=== PATIENT | female | born 1995 | race Caucasian/White ===

== ENCOUNTER 2017-07-22 20:15 | Inpatient (IN) | payer OTHER ==
[~2017-07-22] VITALS: Ht 167.6 cm; Wt 55.0 kg
[~2017-07-22 20:15] MED LIST: AUGMENTIN875 MG PO; DICLEGIS DR 101 EACH PO; NORCO 5/3251 TABLET PO; PRENATAL TABLE1 EAC3 PO; ZOFRAN ODT4 MG PO
[2017-07-22 20:44] LABS: HEMATOCRIT 35.8 % (36.0-46.0); MCH 30.1 PG (29.0-34.0); MCHC 33.2 G/DL (30.0-36.0); MCV 90.6 FL (83-99); MEAN PLAT.VOLUME 9.2 uM^3 (9.5-12.4); PLATELET COUNT 214 K/uL (156-360); RBC DIS.WIDTH-CV 12.9 % (11.8-14.6); RBC DIS.WIDTH-SD 42.5 % (39-53); RED BLOOD COUNT 3.95 M/uL (3.80-5.20); WHITE BLOOD COUNT 6.9 K/uL (4.1-10.2)
[2017-07-22] MEDS ORDERED: LORAZEPAM0.5 MG PO (20:49)
[2017-07-22] MEDS ORDERED: PROMETHAZINE HC25 M1 PO (20:50)
[2017-07-22] MEDS ORDERED: KRATOM PO (20:51)
[2017-07-22 20:54] LABS: CHLORIDE 108 mEq/L (99-109); POTASSIUM 3.5 mEq/L (3.7-5.4); SODIUM 143 mEq/L (136-147)
[2017-07-22 20:55] LABS: GLUCOSE 79 mg/dL (70-99)
[2017-07-22 20:57] LABS: ANION GAP 14 MEQ/L (2-14)
[2017-07-22 20:59] LABS: D-DIMER ELISA < 150.00 ng/mLDDU (<230); GFR ESTIMATE (CALCULATED) > 59 mL/min/
[2017-07-22 21:00] LABS: UREA NITROGEN (BUN) 12 mg/dL (9-23)
[2017-07-22 21:05] LABS: TROP-I INTERPRETATION NEGATIVE; TROPONIN-I < 0.01 ng/mL (0.0-0.30)
[2017-07-22 21:07] LABS: QUANTITATIVE HCG < 4.0 MIU/ML
[2017-07-22] MEDS ORDERED: MELATONIN2.5 MG PO (21:50)
[2017-07-22] MEDS ORDERED: TYLENOL EXTRA500 MG PO (21:51)
[2017-07-22] MEDS ORDERED: TRAZODONE HCL50 MG PO (21:52)
[2017-07-22 22:25] LABS: ADD MIUA? NO; BILIRUBIN NEGATIVE; BLOOD NEGATIVE; COLOR STRAW ((YELLOW)); GLUCOSE (STRIP) NEGATIVE; KETONES NEGATIVE; LEUKOCYTES NEGATIVE; NITRITE NEGATIVE; PROTEIN (STRIP) NEGATIVE; SPECIFIC GRAVITY 1.006 (1.000-1.030); UROBILINOGEN 0.2 MG/DL (0.2-1.0)
[2017-07-22 22:27] LABS: UCUL ADDED? NO
[2017-07-22 22:34] LABS: AMPHETAMINE NEGATIVE (500 ng/mL); BARBITURATES NEGATIVE (200 ng/mL); BENZODIAZEPINES NEGATIVE (150 ng/mL); COCAINE NEGATIVE (150 ng/mL); INTERNAL CONTROLS VALID? YES; METHADONE NEGATIVE (200 ng/mL); METHAMPHETAMINE NEGATIVE (500 ng/mL); OPIATES (MORPHINE) NEGATIVE (100 ng/mL); OXYCODONE NEGATIVE (100 ng/mL); PHENCYCLIDINE NEGATIVE (25 ng/mL); PROPOXYPHENE NEGATIVE (300 ng/mL); THC CANNABINOIDS NEGATIVE (50 ng/mL); TRICYCLIC ANTIDEPRESSANTS NEGATIVE (300 ng/mL)
[2017-07-23] VITALS (8 sets, daily range): BP systolic 92–111; BP diastolic 43–66
[2017-07-23 05:51] LABS: HEMATOCRIT 31.7 % (36.0-46.0); MCH 30.2 PG (29.0-34.0); MCHC 32.5 G/DL (30.0-36.0); MEAN PLAT.VOLUME 10.4 uM^3 (9.5-12.4); PLATELET COUNT 205 K/uL (156-360); RBC DIS.WIDTH-CV 13.2 % (11.8-14.6); RBC DIS.WIDTH-SD 44.6 % (39-53); RED BLOOD COUNT 3.41 M/uL (3.80-5.20); WHITE BLOOD COUNT 12.1 K/uL (4.1-10.2)
[2017-07-23 06:11] LABS: ALKALINE PHOSPHATASE 49 IU/L (3-129); ANION GAP 8 MEQ/L (2-14); CHLORIDE 111 MEQ/L (99-109); GFR ESTIMATE (CALCULATED) > 59 mL/min/; GLUCOSE 92 mg/dL (70-99); POTASSIUM 4.1 MEQ/L (3.7-5.4); SAMPLE HEMOLYSIS CHECK 0; SAMPLE ICTERIC CHECK 0; SAMPLE LIPEMIA CHECK 0; SODIUM 143 MEQ/L (136-147); TOTAL BILIRUBIN 0.3 MG/DL (0.0-1.0); UREA NITROGEN (BUN) 16 mg/dL (9-23)
[2017-07-24 03:00] VITALS: BP 94/55
[2017-07-24 08:53] VITALS: BP 106/68
[2017-07-24 11:45] VITALS: BP 98/54
[2017-07-24] MEDS ORDERED: FAMOTIDINE20 MG PO (12:06)
[2017-07-24] MEDS ORDERED: HEPARIN SO5000 UNIT4 SC (12:06)
[2017-07-24] MEDS ORDERED: CYCLOBENZAPRINE10 MG PO (12:06)
[2017-07-24] MEDS ORDERED: NICOTINE PATCH1 EAC2 TD (12:06)
[2017-07-24] MEDS ORDERED: Tylenol Extra Streng PO (12:06)
== END 2017-07-24 15:24 | disposition short-term general hospital (02) | DRG 309 ==
LOC: EME 20:15 → EDOF 23:11 → ENRESERV 23:12 → 4EAST 07-23 00:05
PROVIDERS: Emergency Medicine; Internal Medicine; Physician Assistant
DX: I49.8 Other specified cardiac arrhythmias (principal); G40.89 Other seizures; R55 Syncope and collapse; F17.210 Nicotine dependence, cigarettes, uncomplicated; E87.6 Hypokalemia; F41.9 Anxiety disorder, unspecified; K50.90 Crohn's disease, unspecified, without complications; D64.9 Anemia, unspecified; I47.2 Ventricular tachycardia; I49.01 Ventricular fibrillation
CPT/HCPCS: 70450; 74176; 80048; 80053; 81003; 83605; 83993 90; 84484; 84702; 85027; 85379; 87086; 93005; 99281; 99285; J1644; J2060; J2270; J7030

== ENCOUNTER 2017-11-06 15:00 | Emergency (ER) | payer OTHER ==
[~2017-11-06] VITALS: Ht 167.6 cm; Wt 55.0 kg
[~2017-11-06 15:00] MED LIST changes: +CYCLOBENZAPRINE10 MG PO; +FAMOTIDINE20 MG PO; +HEPARIN SO5000 UNIT4 SC; +KRATOM PO; +LORAZEPAM0.5 MG PO; +MELATONIN2.5 MG PO; +NICOTINE PATCH1 EAC2 TD; +PROMETHAZINE HC25 M1 PO; +TRAZODONE HCL50 MG PO; +TYLENOL EXTRA500 MG PO; +Tylenol Extra Streng PO
[2017-11-06 15:46] LABS: HEMOGLOBIN 12.5 G/DL (11.9-15.5); MCH 30.1 PG (29.0-34.0); MCHC 32.9 G/DL (30.0-36.0); MCV 91.6 FL (83-99); PLATELET COUNT 196 K/uL (156-360); RBC DIS.WIDTH-CV 12.8 % (11.8-14.6); RBC DIS.WIDTH-SD 42.5 % (39-53); RED BLOOD COUNT 4.15 M/uL (3.80-5.20); WHITE BLOOD COUNT 5.1 K/uL (4.1-10.2)
[2017-11-06 15:56] LABS: CHLORIDE 107 mEq/L (99-109); POTASSIUM 4.4 mEq/L (3.7-5.4); SODIUM 141 mEq/L (136-147)
[2017-11-06 15:58] LABS: GLUCOSE 107 mg/dL (70-99)
[2017-11-06 16:02] LABS: APPEARANCE CLOUDY ((CLEAR)); BILIRUBIN NEGATIVE; BLOOD MODERATE; COLOR YELLOW ((YELLOW)); GLUCOSE (STRIP) NEGATIVE; KETONES NEGATIVE; LEUKOCYTES NEGATIVE; NITRITE NEGATIVE; PROTEIN (STRIP) 30; SPECIFIC GRAVITY 1.035 (1.000-1.030); UROBILINOGEN 0.2 MG/DL (0.2-1.0)
[2017-11-06 16:02] LABS: CREATININE 0.8 mg/dL (0.6-1.3); GFR ESTIMATE (CALCULATED) > 59 mL/min/
[2017-11-06 16:03] LABS: UREA NITROGEN (BUN) 16 mg/dL (9-23)
[2017-11-06 17:10] LABS: EPITHELIAL CELLS 2+ /HPF; RED BLOOD CELLS TNTC /HPF (0-5); WHITE BLOOD CELLS NONE SEEN /HPF (0-5)
[2017-11-06 17:11] LABS: BACTERIA 2+ /HPF; MUCUS RARE /LPF; UCUL ADDED? YES
[2017-11-06] MEDS ORDERED: CIPRO500 MG PO (19:18)
[2017-11-06] MEDS ORDERED: ZOFRAN4 MG PO (19:18)
[2017-11-06] MEDS ORDERED: NORCO 5/3251 TABLET PO (19:18)
[2017-11-06 19:37] VITALS: BP 103/62
== END 2017-11-06 19:38 | disposition home or self-care (01) ==
LOC: EME 15:00
DX: N39.0 Urinary tract infection, site not specified (principal); R31.9 Hematuria, unspecified; R11.2 Nausea with vomiting, unspecified; Z87.442 Personal history of urinary calculi; Z95.0 Presence of cardiac pacemaker; Z88.2 Allergy status to sulfonamides; Z87.891 Personal history of nicotine dependence
CPT/HCPCS: 76775; 80048; 81003; 85027; 87086; 99281; 99285; J1885; J1956; J2405; J3010; J7030

== ENCOUNTER 2017-12-22 15:46 | Emergency (ER) | payer OTHER ==
[~2017-12-22] VITALS: Ht 167.6 cm; Wt 52.7 kg
[~2017-12-22 15:46] MED LIST changes: +CIPRO500 MG PO; +ZOFRAN4 MG PO
[2017-12-22 15:52] VITALS: BP 118/83
[2017-12-22 16:16] LABS: HEMATOCRIT 37.4 % (36.0-46.0); HEMOGLOBIN 12.7 G/DL (11.9-15.5); MCV 88.4 FL (83-99); PLATELET COUNT 219 K/uL (156-360); RBC DIS.WIDTH-SD 41.9 % (39-53); RED BLOOD COUNT 4.23 M/uL (3.80-5.20); WHITE BLOOD COUNT 5.6 K/uL (4.1-10.2)
[2017-12-22 16:25] LABS: ALBUMIN 4.1 g/dL (3.2-4.8); CHLORIDE 106 mEq/L (99-109); POTASSIUM 3.5 mEq/L (3.7-5.4); SODIUM 140 mEq/L (136-147)
[2017-12-22 16:27] LABS: GLUCOSE 104 mg/dL (70-99); TOTAL PROTEIN 6.7 g/dL (6.4-8.3)
[2017-12-22 16:29] LABS: TOTAL BILIRUBIN 0.4 mg/dL (0.0-1.0)
[2017-12-22 16:31] LABS: ALKALINE PHOSPHATASE 67 IU/L (3-129); CREATININE 0.8 mg/dL (0.6-1.3); GFR ESTIMATE (CALCULATED) > 59 mL/min/
[2017-12-22 16:32] LABS: UREA NITROGEN (BUN) 14 mg/dL (9-23)
[2017-12-22 16:32] LABS: APPEARANCE CLOUDY ((CLEAR)); BILIRUBIN SMALL; BLOOD MODERATE; COLOR AMBER ((YELLOW)); GLUCOSE (STRIP) NEGATIVE; KETONES 5; LEUKOCYTES TRACE; NITRITE NEGATIVE; PROTEIN (STRIP) 30; SPECIFIC GRAVITY 1.036 (1.000-1.030); UROBILINOGEN 0.2 MG/DL (0.2-1.0)
[2017-12-22 16:33] LABS: AST (GOT) 23 IU/L (2-34)
[2017-12-22 16:34] LABS: ALT (GPT) 14 IU/L (3-49)
[2017-12-22 16:39] LABS: QUANTITATIVE HCG < 4.0 MIU/ML
[2017-12-22 17:08] LABS: EPITHELIAL CELLS 1+ /HPF; RED BLOOD CELLS 20-30 /HPF (0-5); WHITE BLOOD CELLS RARE /HPF (0-5)
[2017-12-22 17:09] LABS: BACTERIA 1+ /HPF; MUCUS NONE SEEN /LPF; UCUL ADDED? NO
== END 2017-12-22 17:19 | disposition left against medical advice (07) ==
LOC: EME 15:46
DX: R10.9 Unspecified abdominal pain (principal); Z53.21 Procedure and treatment not carried out due to patient leaving prior to being seen by health care provider
CPT/HCPCS: 80053; 81003; 84702; 85027

== ENCOUNTER 2018-04-27 09:29 | Inpatient (IN) | payer OTHER ==
[~2018-04-27] VITALS: Ht 167.6 cm; Wt 55.6 kg
[2018-04-27 10:09] LABS: BASOPHIL (%) 0.3 % (0-1); EOSINOPHIL (%) 0 % (0-5); HEMATOCRIT 33.4 % (36.0-46.0); HEMOGLOBIN 11.2 G/DL (11.9-15.5); IMMATURE GRANULOCYTE (%) 0.3 % (0.0-0.7); LYMPHOCYTE COUNT 1.2 K/uL (1.0-2.8); MCH 29.9 PG (29.0-34.0); MCHC 33.5 G/DL (30.0-36.0); MCV 89.3 FL (83-99); MONOCYTE (%) 6.3 % (3-12); MONOCYTE COUNT 0.5 K/uL (0-0.8); NEUTROPHIL (%) 77.1 % (45-76); PLATELET COUNT 156 K/uL (156-360); RBC DIS.WIDTH-CV 12.6 % (11.8-14.6); RBC DIS.WIDTH-SD 40.9 % (39-53); RED BLOOD COUNT 3.74 M/uL (3.80-5.20); WHITE BLOOD COUNT 7.8 K/uL (4.1-10.2)
[2018-04-27 10:18] LABS: INTER. NORMALIZED RATIO 1.2
[2018-04-27 10:21] LABS: CHLORIDE 108 mEq/L (99-109); POTASSIUM 3.6 mEq/L (3.7-5.4); SODIUM 141 mEq/L (136-147)
[2018-04-27 10:23] LABS: GLUCOSE 101 mg/dL (70-99)
[2018-04-27 10:26] LABS: CREATININE 0.8 mg/dL (0.6-1.3); GFR ESTIMATE (CALCULATED) > 59 mL/min/
[2018-04-27 10:27] LABS: UREA NITROGEN (BUN) 15 mg/dL (9-23)
[2018-04-27 10:31] LABS: TROP-I INTERPRETATION NEGATIVE; TROPONIN-I < 0.01 ng/mL (0.0-0.30)
[2018-04-27] MEDS ORDERED: PANTOPRAZOLE SO40 MG PO (12:59)
[2018-04-27] MEDS ORDERED: PROMETHAZINE12.5 M1 PO (13:00)
[2018-04-27 13:58] VITALS: BP 101/58
[2018-04-27 16:21] LABS: TROP-I INTERPRETATION NEGATIVE; TROPONIN-I < 0.01 ng/mL (0.0-0.30)
[2018-04-27 16:29] VITALS: BP 87/55
[2018-04-27 18:11] VITALS: BP 103/62
[2018-04-27 19:13] VITALS: BP 97/56
[2018-04-27 22:28] LABS: TROP-I INTERPRETATION NEGATIVE; TROPONIN-I < 0.01 ng/mL (0.0-0.30)
[2018-04-27 23:13] VITALS: BP 92/53
[2018-04-28 03:50] VITALS: BP 90/51
[2018-04-28 05:18] VITALS: BP 101/55
[2018-04-28 05:27] LABS: HEMATOCRIT 33.1 % (36.0-46.0); HEMOGLOBIN 10.7 G/DL (11.9-15.5); MCH 29.6 PG (29.0-34.0); MCHC 32.3 G/DL (30.0-36.0); MCV 91.4 FL (83-99); PLATELET COUNT 162 K/uL (156-360); RBC DIS.WIDTH-CV 12.6 % (11.8-14.6); RBC DIS.WIDTH-SD 41.7 % (39-53); RED BLOOD COUNT 3.62 M/uL (3.80-5.20); WHITE BLOOD COUNT 7.5 K/uL (4.1-10.2)
[2018-04-28 05:50] LABS: CHLORIDE 107 MEQ/L (99-109); CREATININE 0.6 MG/DL (0.6-1.3); GFR ESTIMATE (CALCULATED) > 59 mL/min/; GLUCOSE 97 mg/dL (70-99); SODIUM 140 MEQ/L (136-147); UREA NITROGEN (BUN) 12 mg/dL (9-23)
[2018-04-28 07:20] VITALS: BP 95/52
[2018-04-28] MEDS ORDERED: NICOTINE PATCH1 EAC1 TD (09:51)
== END 2018-04-28 12:30 | disposition home or self-care (01) | DRG 101 ==
LOC: EME 09:29 → 4EAST 12:00 → EDOF 12:00 → ENRESERV 12:04 → 4EAST 13:35
PROVIDERS: Emergency Medicine; Family Medicine
DX: G40.409 Other generalized epilepsy and epileptic syndromes, not intractable, without status epilepticus (principal); I49.8 Other specified cardiac arrhythmias; Z95.810 Presence of automatic (implantable) cardiac defibrillator; E87.6 Hypokalemia; R11.2 Nausea with vomiting, unspecified; R63.4 Abnormal weight loss; Z68.1 Body mass index [BMI] 19.9 or less, adult; F17.210 Nicotine dependence, cigarettes, uncomplicated; D64.9 Anemia, unspecified; J40 Bronchitis, not specified as acute or chronic; R07.89 Other chest pain; M54.9 Dorsalgia, unspecified
CPT/HCPCS: 70450; 71045; 80048; 83735; 84484; 85025; 85027; 85610; 85730; 93005; 93306; 95819; 99281; 99285; J1650; J2060; J2405; J3010; J7030

== ENCOUNTER 2018-05-26 20:01 | Emergency (ER) | payer OTHER ==
[~2018-05-26] VITALS: Ht 167.6 cm; Wt 52.9 kg
[~2018-05-26 20:01] MED LIST changes: +NICOTINE PATCH1 EAC1 TD; +PANTOPRAZOLE SO40 MG PO; +PROMETHAZINE12.5 M1 PO
[2018-05-26 20:58] LABS: HEMATOCRIT 30.6 % (36.0-46.0); HEMOGLOBIN 10.5 G/DL (11.9-15.5); MCH 29.8 PG (29.0-34.0); MCHC 34.3 G/DL (30.0-36.0); PLATELET COUNT 147 K/uL (156-360); RBC DIS.WIDTH-CV 13.2 % (11.8-14.6); RBC DIS.WIDTH-SD 41.8 % (39-53); RED BLOOD COUNT 3.52 M/uL (3.80-5.20); WHITE BLOOD COUNT 5.1 K/uL (4.1-10.2)
[2018-05-26 20:59] LABS: MCV 86.9 FL (83-99)
[2018-05-26 21:02] LABS: CHLORIDE 106 mEq/L (99-109); POTASSIUM 3.5 mEq/L (3.7-5.4); SODIUM 141 mEq/L (136-147)
[2018-05-26 21:04] LABS: GLUCOSE 96 mg/dL (70-99); TOTAL PROTEIN 6.4 g/dL (6.4-8.3)
[2018-05-26 21:06] LABS: TOTAL BILIRUBIN 0.5 mg/dL (0.0-1.0)
[2018-05-26 21:07] LABS: SERUM ETHYL ALCOHOL < 10 mg/dL
[2018-05-26 21:08] LABS: ALKALINE PHOSPHATASE 55 IU/L (3-129); CREATININE 0.8 mg/dL (0.6-1.3); GFR ESTIMATE (CALCULATED) > 59 mL/min/
[2018-05-26 21:09] LABS: AST (GOT) 19 IU/L (2-34); UREA NITROGEN (BUN) 14 mg/dL (9-23)
[2018-05-26 21:11] LABS: ALT (GPT) 11 IU/L (3-49)
[2018-05-26 21:12] LABS: QUANTITATIVE HCG < 4.0 MIU/ML
[2018-05-26 22:24] LABS: AMPHETAMINE NEGATIVE (500 ng/mL); BARBITURATES NEGATIVE (200 ng/mL); BENZODIAZEPINES NEGATIVE (150 ng/mL); BUPRENORPHINE NEGATIVE (10 ng/mL); COCAINE NEGATIVE (150 ng/mL); METHADONE NEGATIVE (200 ng/mL); METHAMPHETAMINE NEGATIVE (500 ng/mL); OPIATES (MORPHINE) NEGATIVE (100 ng/mL); OXYCODONE NEGATIVE (100 ng/mL); PHENCYCLIDINE NEGATIVE (25 ng/mL); PROPOXYPHENE NEGATIVE (300 ng/mL); THC CANNABINOIDS NEGATIVE (50 ng/mL); TRICYCLIC ANTIDEPRESSANTS NEGATIVE (300 ng/mL)
[2018-05-26 23:37] VITALS: BP 100/59
== END 2018-05-26 23:38 | disposition home or self-care (01) ==
LOC: EME → EDBD 20:01 → EME 23:38
PROVIDERS: Emergency Medicine
DX: R56.9 Unspecified convulsions (principal); S00.83XA Contusion of other part of head, initial encounter; W18.30XA Fall on same level, unspecified, initial encounter; Y92.000 Kitchen of unspecified non-institutional (private) residence as the place of occurrence of the external cause; F41.9 Anxiety disorder, unspecified; I49.8 Other specified cardiac arrhythmias; K50.90 Crohn's disease, unspecified, without complications; F17.200 Nicotine dependence, unspecified, uncomplicated; Z95.0 Presence of cardiac pacemaker; Z87.442 Personal history of urinary calculi; Z88.2 Allergy status to sulfonamides; Z88.6 Allergy status to analgesic agent; Z88.1 Allergy status to other antibiotic agents
CPT/HCPCS: 80053; 83605; 84702; 85027; 99281; 99285; G0480; J2060; J7030